=== PATIENT | female | born 1955 | race Hispanic/Latino ===

== ENCOUNTER 2017-01-13 10:00 | Outpatient (CLI) | payer BC ==
[2017-01-13 11:18] LABS: Blood Urea Nitrogen 12 mg/dL (7-17)
[2017-01-13] MEDS ORDERED: NACL 0.9% 50 ML ONE (11:38)
--- NOTE | 2017-01-16 11:43 | Cat Scan Report ---
CT ANGIO PELVIS HISTORY: Cramps, spasm. TECHNIQUE: Helical CT and 1.25 mm intervals with sagittal and coronal reformatted images. Rotational MIP images. FINDINGS: No comparison. The visualized distal abdominal aorta, bilateral common iliac arteries, bilateral internal iliac arteries, bilateral external iliac arteries and bilateral femoral arteries are widely patent with no significant atherosclerotic disease. Stenosis is estimated at less than 20% throughout all vessels. The visualized pelvic fissure are within normal limits. The uterus has been surgically removed. No pelvic mass or fluid collection. Focal scarring at the inferior pole of the right kidney is noted. IMPRESSION: Normal CTA of the pelvis and bilateral thighs.
== END 2017-01-13 10:01 | disposition home or self-care (01) ==
LOC: CT 10:00
PROVIDERS: ATTEND Radiology Vascular & Interventional Radiology
DX: R25.2 Cramp and spasm (principal); Z90.710 Acquired absence of both cervix and uterus
CPT/HCPCS: 36415; 72191; 82565; 84520; Q9967